=== PATIENT | male | born 1980 | race Two or more races ===

== ENCOUNTER 2021-03-15 04:22 | Emergency (ER) | payer SELFPAY ==
[~2021-03-15] VITALS: Ht 182.9 cm; Wt 91.0 kg
[2021-03-15 04:27] VITALS: BP 154/80
== END 2021-03-15 05:18 | disposition left against medical advice (07) ==
LOC: ER 04:22
DX: R06.02 Shortness of breath (principal)
CPT/HCPCS: 99283